=== PATIENT | male | born 1990 | race Hispanic/Latino ===

== ENCOUNTER 2021-05-17 18:14 | Emergency (ER) | payer SELFPAY ==
[2021-05-17] MEDS ORDERED: Acetaminophen 500 MG TAB ONE (19:15)
[2021-05-17 20:59] LABS: SARS-CoV-2 NAA Rapid Test DETECTED (NotDetected)
== END 2021-05-17 21:15 | disposition home or self-care (01) ==
LOC: ERS 18:14
DX: U07.1 COVID-19 (principal)
CPT/HCPCS: 0240U; 99284

== ENCOUNTER 2023-07-15 01:04 | Emergency (ER) | payer OTHER, SELFPAY ==
[2023-07-15] MEDS ORDERED: fentaNYL 50 mcg/mL 1 mL Vial ONE (01:23)
[2023-07-15 01:40] LABS: #Basophils 0.1 thou/uL (0.0-0.2); #Eosinphils 0.8 thou/uL (0.0-0.7); #Monocytes 0.9 thou/uL (0.11-0.59); #Neutrophils 3.7 thou/uL (1.40-6.50); %Basophils 0.6 % (0.0-1.0); %Eosinophils 6.3 % (0.0-10.0); %Lymphocytes 54.1 % (21.0-51.0); %Monocytes 7.8 % (0.0-10.0); %Neutrophils 30.7 % (42.0-75.0); Hemoglobin 16.2 g/dL (14.0-18.0); Mean Corpuscular HGB CONC 36.8 g/dL (32.0-36.0); Mean Corpuscular Hemoglobin 33.7 pg (27.0-31.0); Mean Corpuscular Volume 91.5 fl (78.0-98.0); Mean Platelet Volume 9.1 fL (7.4-10.4); Platelet Count 228 10x3/uL (130-400); RBC Distribution Width 12.1 % (11.5-14.5); Red Blood Cell (RBC) Count 4.81 mill/uL (4.70-6.10); White Blood Cell (WBC) Count 11.9 10x3/uL (4.8-10.8)
[2023-07-15 02:35] LABS: ALT (SGPT) 61 U/L (8-55); AST (SGOT) 33 U/L (5-34); Albumin 4.2 g/dL (3.5-5.0); Alkaline Phosphatase 83 U/L (40-110); Anion Gap 18 mmol/L (10-20); BUN (Urea Nitrogen) 14 mg/dL (8.9-20.6); Bilirubin, Total 0.6 mg/dL (0.2-1.2); Calc. Creatinine Clearance 0 mL/min (70-130); Calcium 9.6 mg/dL (7.8-10.44); Carbon Dioxide 21 mmol/L (22-29); Chloride 103 mmol/L (98-107); Estimated GFR 91; Globulin 3.4 g/dL (2.4-3.5); Glucose 94 mg/dL (70-105); Lipase 31 U/L (8-78); Potassium 3.8 mmol/L (3.5-5.1); Protein, Total 7.6 g/dL (6.0-8.3); Sodium 138 mmol/L (136-145)
[2023-07-15] MEDS ORDERED: Ketorolac Tromethamine 30 MG/ML VIAL ONE (04:30)
[2023-07-15 04:36] LABS: Bacteria/HPF None Seen HPF (None Seen); Bilirubin Negative (Negative); Blood, Urine 3+ (Negative); CAUTI Indications for Culture Pelvic or flank pain; Clarity Clear (Clear); Glucose, Urine (Dipstick) Normal (Negative); Ketone, Urine Negative (Negative); Leukocyte Negative Leu/uL (Negative); Nitrite Negative (Negative); Protein, Urine (Dipstick) 10 mg/dL (Neg-Trace); RBC/HPF Greater than 50 HPF (0-3); Specific Gravity, Urine 1.042 (1.002-1.036); Squamous Epithelial None Seen HPF (0-3); pH, Urine 6.5 (5.0-9.0)
[2023-07-15 04:53] LABS: Urine Culture Reflex No No
[2023-07-15] MEDS ORDERED: Morphine 4 MG/ML VIAL ONE (05:07)
[2023-07-15] MEDS ORDERED: Iopamidol 370 76% 100 ML VIAL ONE (08:57)
== END 2023-07-15 05:13 | disposition home or self-care (01) ==
LOC: ERS 01:04
DX: N13.2 Hydronephrosis with renal and ureteral calculous obstruction (principal)
CPT/HCPCS: 36415; 74177; 76705; 76870; 80053; 81001; 83690; 85025; 93976; 96374; 96375; J1885; J2270; J3010; Q9967